=== PATIENT | female | born 1990 | race Caucasian/White ===

== ENCOUNTER 2023-04-01 09:58 | Outpatient (OUT) | payer MEDICAID, SELFPAY ==
--- NOTE | 2023-04-01 11:02 | XR_ITS ---
The [address] [address] Patient Name: DONAVON STEELE MRN: [id number] date: 1990 Sex: F Assigned Patient Location: [facility] Current Patient Location: [facility] Accession/Order Number: [id number] Exam Date: 04/01/2023 10:55 Report Date: 04/01/2023 11:26 At the request of: AILIN FONSECA Procedure: XR chest 2V EXAM: XR chest 2V HISTORY: PRE OP EXAM COMPARISON: None. TECHNIQUE: PA and lateral views of the chest. FINDINGS: The cardiomediastinal silhouette is normal. No focal consolidation is identified. There is no pneumothorax. No pleural effusion is noted. The osseous structures are intact. XR/XR chest 2V IMPRESSION: No acute cardiopulmonary process. Electronically authenticated by: TATYANA ELMORE Date: 04/01/2023 11:26
== END 2023-04-01 09:59 | disposition home or self-care (01) ==
PROVIDERS: Visit Provider Obstetrics & Gynecology
DX: Z01.810 Encounter for preprocedural cardiovascular examination (principal); N92.0 Excessive and frequent menstruation with regular cycle; R10.2 Pelvic and perineal pain
CPT/HCPCS: 71046

== ENCOUNTER 2023-04-15 09:26 | Day surgery (SDC) | payer MEDICAID, SELFPAY ==
[2023-04-01 10:38] VITALS: BP 110/68; PULSE 69; RESP 20; TEMP 36.2; O2SAT 97; BMI 21.2
[2023-04-15] VITALS (11 sets, daily range): BP systolic 102–126; BP diastolic 66–88; PULSE 55–83; RESP 12–20; TEMP 36.3–37.2; O2SAT 73–100; BMI 21.1
[2023-04-15 10:28] LABS: Basophils Absolute Auto 0.1 10^3/uL (0.0-0.1); Basophils Percent Auto 1.2 % (0.2-2.0); Eosinophils Absolute Auto 0.1 10^3/uL (0.0-0.7); Eosinophils Percent Auto 1.7 % (0.9-7.0); Hematocrit 38.4 % (36.0-48.0); Hemoglobin 12.9 g/dL (12.0-16.0); Immature Granulocytes Abs Auto 0.01 10^3/uL (0.00-0.03); Immature Granulocytes Pct Auto 0.2 % (0.0-0.5); Lymphocytes Absolute Auto 1.3 10^3/uL (1.2-3.8); Lymphocytes Percent Auto 33.2 % (20.5-60.0); Mean Corpuscular HGB Conc 33.6 g/dL (29.9-35.2); Mean Corpuscular Hemoglobin 30.6 pg (26.7-34.0); Mean Corpuscular Volume 91.2 fL (81.0-99.0); Mean Platelet Volume 10.3 fL (9.5-13.5); Monocytes Absolute Auto 0.4 10^3/uL (0.3-0.8); Monocytes Percent Auto 8.7 % (1.7-12.0); Neutrophils Absolute Auto 2.2 10^3/uL (1.4-6.5); Platelet Count 166 10^3/uL (150-450); Red Blood Count 4.21 10^6/uL (4.20-5.40); Red Cell Distribution Width 12.5 % (11.0-15.0)
[2023-04-15] MEDS: LACTATED RINGER'S SOLUTION 1,000 ML 50 ML IV ×2 (10:28→12:12)
--- NOTE | 2023-04-15 12:29 | PM.ONB ---
Brief Operative Note Date of procedure: 04/15/23 Pre-op diagnosis: pelvic pain Post-op diagnosis: same as pre-op Procedure: NAME OF PROCEDURE: [diagnostic laparoscopy with lysis of omental adhesions from vaginal cuff, rt ovarian cystotomy PROCEDURE: The patient was taken back to the Operating Room where she was placed in dorsal lithotomy position after given general anesthesia. The patient was prepped and draped in normal sterile fashion. A sponge stick was placed into the patient's vagina. Attention was turned to the patient's abdomen, where a small umbilical incision was made. The fascia was tented using Mary clamps and the fascia was entered sharply. Confirmation of intraabdominal placement of the 10 mm port was confirmed under direct visualization using a laparoscope. The patient's abdomen was then insufflated using CO2 gas with approximately 4 liters. A second port was placed left laterally, this was done under direct visualization with a 5 mm port. Survey of the patient's abdomen demonstrated normal liver and gallbladder. Survey of the patient's pelvic anatomy demonstrated normal appearing rt and lt ovary except for small rt ovarian cyst. absent tubes and uterus. No endometrial implants could be noted, no evidence of any pelvic disease was seen, significan omental adhesions to the vaginal cuff. blunt rt ovarian cystotomy also performed. All instruments were removed from the patient's abdomen. The patient's abdomen was deinsufflated of CO2 gas. The patient tolerated the procedure well. Sponge stick was removed from the patient's vagina. The patient's infraumbilical fascia was closed using #0 Vicryl on a GI needle. The patient's skin was closed laterally and infraumbilically using 4-0 Vicryl. The patient tolerated the procedure well. Sponge, lap and needle counts were correct x 2. The patient was taken to Recovery Room in stable condition.Clips from prior surgery noted adhered to bladder, the clips were grasped and gently removed Anesthesia: DAVON Surgeon: Gamal Acosta Psychometric Examiner: Rach Diaz Estimated blood loss (mL): 5 Pathology: none sent Condition: stable Disposition: PACU
[2023-04-15] MEDS: HYDROMORPHONE HCL 0.5 MG/0.5 ML SYRINGE IV (12:47)
== END 2023-04-15 14:15 | disposition home or self-care (01) ==
PROVIDERS: Anesthesiology; Visit Provider Obstetrics & Gynecology
PROC: (CPT 840; principal; 2023-04-15 10:45)
DX: N92.0 Excessive and frequent menstruation with regular cycle (principal); R10.2 Pelvic and perineal pain; N83.201 Unspecified ovarian cyst, right side; J45.909 Unspecified asthma, uncomplicated; Z90.710 Acquired absence of both cervix and uterus; K66.0 Peritoneal adhesions (postprocedural) (postinfection)
CPT/HCPCS: 49322; 36415; 84702; 85025; J1170; J2704